=== PATIENT | female | born 1980 | race Caucasian/White ===

== ENCOUNTER 2018-05-17 20:19 | Emergency (ER) | payer BC ==
[~2018-05-17] VITALS: Ht 162.6 cm; Wt 79.5 kg
[2018-05-17] MEDS ORDERED: MORPHINE SULFATE 4 MG/ML SYRINGE IM ONE (22:15)
[2018-05-17] MEDS ORDERED: ONDANSETRON HCL 4 MG/2 ML VIAL IM ONE (22:15)
[2018-05-17 23:08] VITALS: BP 127/83
== END 2018-05-17 23:10 | disposition home or self-care (01) ==
LOC: EMS 20:20
DX: S82.852A Displaced trimalleolar fracture of left lower leg, initial encounter for closed fracture (principal); X50.1XXA Overexertion from prolonged static or awkward postures, initial encounter; Y93.89 Activity, other specified; Y92.89 Other specified places as the place of occurrence of the external cause; Y99.8 Other external cause status
CPT/HCPCS: 29515; 73610; 96372; 99284; J2270; J2405

== ENCOUNTER 2018-05-20 05:38 | Inpatient (IN) | payer BC ==
[~2018-05-20] VITALS: Ht 157.5 cm; Wt 67.0 kg
[2018-05-20] MEDS ORDERED: 0.9% SODIUM CHLORIDE 10 ML SYRINGE IVP PRN (06:15)
[2018-05-20] MEDS ORDERED: ONDANSETRON HCL 4 MG/2 ML VIAL IVP PRN (06:15)
[2018-05-20 06:40] LABS: ANION GAP 6 mmol/L (8-16); CALCIUM, TOTAL 9.2 mg/dL (8.8-10.5); CARBON DIOXIDE 28 mmol/L (22-29); CHLORIDE 104 mmol/L (98-107); CREATININE 0.82 mg/dL (0.60-1.30); GLOMERULAR FILTR. RATE CALC > 60 mL/min (>60); GLUCOSE,RANDOM 108 mg/dL (70-110); POTASSIUM 3.7 mmol/L (3.5-5.1); SODIUM SERUM 138 mmol/L (136-145); UREA NITROGEN, BLOOD 10 mg/dL (7-18)
[2018-05-20 06:41] LABS: BASOPHILS % (AUTO) 0.4 % (0.0-2.0); HEMATOCRIT 35.8 % (36-46); HEMOGLOBIN 12.8 g/dL (12.0-16.0); LYMPHOCYTES # (AUTO) 2.2 K/uL (1.0-4.8); LYMPHOCYTES % (AUTO) 30.2 % (22.0-44.0); MEAN CORPUSCULAR HEMOGLOBIN 30.5 pg (26.0-34.0); MEAN CORPUSCULAR HGB CONC 35.6 G/dL (31.0-37.0); MEAN CORPUSCULAR VOLUME 86 fL (80-100); MONOCYTES # (AUTO) 0.6 K/uL (0.1-1.0); MONOCYTES % (AUTO) 8.3 % (2.0-9.0); NEUTROPHILS # (AUTO) 4.3 K/uL (1.8-7.7); NEUTROPHILS % (AUTO) 59.1 % (40.0-70.0); PLATELET COUNT (AUTO) 193 K/uL (150-450); PROTHROMBIN TIME 10.1 SEC (9.4-11.6); RED BLOOD CELL COUNT(AUTO) 4.18 MIL/uL (4.00-5.20)
[2018-05-20] MEDS ORDERED: RINGERS SOLUTION,LACTATED 1,000 ML IV ONE (06:45)
[2018-05-20 06:46] LABS: ALANINE AMINOTRANSFERASE 22 U/L (12-78); ALBUMIN 3.4 g/dL (3.4-5.0); ALKALINE PHOSPHATASE 63 U/L (46-116); ASPARTATE AMINOTRANSFERASE 15 U/L (15-37); BILIRUBIN,TOTAL 0.7 mg/dL (0.1-1.0); TOTAL PROTEIN, SERUM 7.1 g/dL (6.4-8.2)
[2018-05-20] MEDS ORDERED: BUPIVACAINE HCL/PF 0.25% 30 ML VIAL ONE (06:47)
[2018-05-20] MEDS ORDERED: SODIUM CL IRRIG SOLN BAG 0 ML IRRIG ONE (06:47)
[2018-05-20] MEDS ORDERED: FentaNYL CITRATE-PF 100 MCG/2 ML VIAL IVP PRN (08:15)
[2018-05-20] MEDS: OXYGEN THERAPY IH SCH (08:15)
[2018-05-20] MEDS ORDERED: MEPERIDINE HCL/PF 25 MG/0.5 ML AMP IVP PRN (08:15)
[2018-05-20] MEDS ORDERED: HYDROmorphone 2 MG/ML SYRINGE IVP PRN (08:30)
[2018-05-20] MEDS ORDERED: DIAZEPAM 5 MG TABLET PO PRN (08:30)
[2018-05-20] MEDS: ACETAMINOPHEN 1000 MG/ISO-OSM 100 ML IV SCH ×3 (08:30→23:59)
[2018-05-20] MEDS ORDERED: KETOROLAC TROMETHAMINE 30 MG/ML VIAL ONE (09:04)
[2018-05-20] MEDS ORDERED: MEPERIDINE HCL/PF 25 MG/0.5 ML AMP ONE (09:05)
[2018-05-20] MEDS: KETOROLAC TROMETHAMINE 30 MG/ML VIAL IVP SCH ×3 (09:06→23:57)
[2018-05-20] MEDS: HYDROmorphone 2 MG/ML SYRINGE IVP PRN ×2 (09:10→09:20)
[2018-05-20 10:48] VITALS: BP 104/53
[2018-05-20] MEDS ORDERED: METOCLOPRAMIDE HCL 5 MG/ML 2 ML VIAL IVP ONE (12:00)
[2018-05-20] MEDS ORDERED: LIDOCAINE HCL/PF 2% 5 ML SYRINGE IVP ONE (12:00)
[2018-05-20] MEDS ORDERED: PROPOFOL 1% 20 ML VIAL IVP ONE (12:00)
[2018-05-20] MEDS ORDERED: DEXAMETHASONE SOD PHOS 4 MG/ML VIAL IVP ONE (12:00)
[2018-05-20] MEDS ORDERED: ROCURONIUM BROMIDE 10 MG/ML 5 ML VIAL IVP ONE (12:00)
[2018-05-20] MEDS ORDERED: NEOSTIGMINE METHYLSULFATE 1 MG/ML 10 ML VIAL IVP ONE (12:00)
[2018-05-20] MEDS ORDERED: SUCCINYLCHOLINE CHLORIDE 20 MG/ML 10 ML VIAL IVP ONE (12:00)
[2018-05-20] MEDS ORDERED: GLYCOPYRROLATE 0.2 MG/ML VIAL IM ONE (12:00)
[2018-05-20 15:37] VITALS: BP 113/67
[2018-05-20] MEDS ORDERED: SODIUM CHLORIDE 0.9% 250 ML IV ONE (18:46)
[2018-05-20] MEDS: CYCLOBENZAPRINE HCL 10 MG TABLET PO SCH ×2 (18:53→21:16)
[2018-05-20] MEDS: ASPIRIN 325 MG EC TABLET PO SCH (18:54)
[2018-05-20] MEDS: CeFAZolin 2 GM/DEXTROSE 50 ML IV SCH ×2 (19:03→23:59)
[2018-05-20 19:53] VITALS: BP 110/63
[2018-05-20] MEDS ORDERED: ZOLPIDEM TARTRATE 5 MG TABLET PO SCH (21:00)
[2018-05-20 23:49] VITALS: BP 94/55
[2018-05-21 05:23] VITALS: BP 96/57
[2018-05-21] MEDS: OXYGEN THERAPY IH SCH (07:35)
[2018-05-21 08:21] VITALS: BP 99/57
[2018-05-21] MEDS: KETOROLAC TROMETHAMINE 30 MG/ML VIAL IVP SCH (08:28)
[2018-05-21] MEDS: ASPIRIN 325 MG EC TABLET PO SCH (08:28)
[2018-05-21] MEDS: CYCLOBENZAPRINE HCL 10 MG TABLET PO SCH (08:28)
[2018-05-21] MEDS ORDERED: OXYC-43 PO ×2 (10:33→10:36)
[2018-05-21] MEDS ORDERED: CEPH-582 PO (10:37)
[2018-05-21 12:25] VITALS: BP 95/65
[2018-05-21] MEDS ORDERED: MIDAZOLAM HCL 2 MG/2 ML VIAL IVP ONE (15:24)
[2018-05-21] MEDS ORDERED: FentaNYL CITRATE-PF 100 MCG/2 ML VIAL IVP ONE (15:24)
== END 2018-05-21 15:25 | disposition home or self-care (01) | DRG 494 ==
LOC: EMS 05:39 → 6S 07:29 → 6N 10:30
PROVIDERS: ADMIT Orthopaedic Surgery; ATTEND Orthopaedic Surgery
PROC: 0QSH04Z Reposition Left Tibia with Internal Fixation Device, Open Approach (ICD-10-PCS; 2018-05-20)
PROC: 0QSK04Z Reposition Left Fibula with Internal Fixation Device, Open Approach (ICD-10-PCS; principal; 2018-05-20 07:30)
DX: S82.852A Displaced trimalleolar fracture of left lower leg, initial encounter for closed fracture (principal); X58.XXXA Exposure to other specified factors, initial encounter; Y93.89 Activity, other specified; Y92.89 Other specified places as the place of occurrence of the external cause; Y99.8 Other external cause status
CPT/HCPCS: 87081; 93005; 96360; 97162; 97165; 97530; 97535; 99285; C1713; J0131; J0330; J0690; J1100; J1170; J1885; J2250; J2704; J2765; J3010; J3490; J7050; J7120

== ENCOUNTER → 2018-07-13 | Outpatient (CLI) | payer BC ==
[~2018-07-13] MED LIST: CEPH-582 PO; OXYC-43 PO
== END | disposition home or self-care (01) ==
LOC: RADPV 09:50
PROVIDERS: ATTEND Orthopaedic Surgery
DX: S82.832A Other fracture of upper and lower end of left fibula, initial encounter for closed fracture (principal); S82.52XA Displaced fracture of medial malleolus of left tibia, initial encounter for closed fracture; M25.472 Effusion, left ankle; M79.89 Other specified soft tissue disorders; X58.XXXA Exposure to other specified factors, initial encounter; Y93.89 Activity, other specified; Y92.89 Other specified places as the place of occurrence of the external cause; Y99.8 Other external cause status